=== PATIENT | female | born 1975 | race Caucasian/White ===

== ENCOUNTER → 2017-11-18 09:23 | Outpatient (CLI) | payer OTHER, SELFPAY ==
[2017-11-18 13:26] LABS: T4 Free Direct 1.12 ng/dL (0.76-1.46); Thyroid Stim Hormone (TSH) 1.79 uIU/mL (0.358-3.74)
== END ==
LOC: LAB.FUTURE 05-23 00:29 → BFHLAB 04-18 10:57
PROVIDERS: Family Provider Family Medicine; PCP Family Medicine; Visit Provider Family Medicine
DX: E03.9 Hypothyroidism, unspecified (principal)
CPT/HCPCS: 36415; 84439; 84443

== ENCOUNTER → 2018-01-17 16:00 | Outpatient (CLI) | payer OTHER, SELFPAY ==
[2018-01-17 18:35] LABS: T4 Free Direct 1.24 ng/dL (0.76-1.46); Thyroid Stim Hormone (TSH) 0.33 uIU/mL (0.358-3.74)
== END ==
PROVIDERS: Family Provider Family Medicine; PCP Family Medicine; Visit Provider Family Medicine
DX: E03.9 Hypothyroidism, unspecified (principal)
CPT/HCPCS: 36415; 84439; 84443

== ENCOUNTER → 2018-05-18 14:40 | Outpatient (CLI) | payer OTHER, SELFPAY ==
[2018-05-24 07:10] LABS: HPV Reflexed? NOT INDICATED
== END ==
PROVIDERS: Visit Provider Obstetrics & Gynecology
DX: Z12.4 Encounter for screening for malignant neoplasm of cervix (principal)
CPT/HCPCS: 88175; G0145

== ENCOUNTER → 2018-07-01 08:31 | Outpatient (CLI) | payer OTHER, SELFPAY ==
[2018-07-01 12:32] LABS: Anion Gap 7 (5-15); BUN 15 mg/dL (7-18); BUN/Creat Ratio 16.4 RATIO (10-20); Calcium,Total 9.2 mg/dL (8.5-10.1); Chloride 107 mmol/L (98-107); Creatinine, Serum 0.91 mg/dL (0.55-1.02); EST Glomerular Filtration Rate 71 mL/min (>60); Est Glom Filt Rate - Afr Amer 86 mL/min (>60); Glucose 84 mg/dL (74-106); Potassium 3.8 mmol/L (3.5-5.1); Sodium Level 142 mmol/L (136-145); Thyroid Stim Hormone (TSH) 1.08 uIU/mL (0.358-3.74)
== END ==
PROVIDERS: Family Provider Family Medicine; PCP Family Medicine; Visit Provider Family Medicine
DX: E03.9 Hypothyroidism, unspecified (principal)
CPT/HCPCS: 36415; 80048; 84439; 84443

== ENCOUNTER → 2018-07-01 13:08 | Outpatient (CLI) | payer OTHER, SELFPAY ==
--- NOTE | 2018-07-01 13:11 | BI_ITS ---
MAMMOGRAPHY - BILATERAL SCREENING REASON FOR EXAM: Female, 43 years old. Routine annual screening examination. PERTINENT HISTORY: Non-contributory. Prior right ultrasound guided biopsy. TECHNIQUE: Digital bilateral breast rory (3D mammographic acquisition) in the CC and MLO projections. 2-D mediolateral oblique (MLO) and craniocaudad (CC) views of both breasts were obtained. CAD: Full Field Digital Mammography with Computer Added Detection was performed. COMPARISON: Comparison is made with prior study dated March 17, 2017 and January 20, 2016. FINDINGS: Breast Composition: The breasts are heterogeneously dense, which may obscure small masses. There are no dominant masses or suspicious calcifications. 2 tissue markers are once again seen in the upper outer aspect of the right breast. Stable bilateral benign-appearing axillary lymph nodes. No other significant abnormalities are identified. There has been no significant change since the prior study. BI/SCREENING MAMM (CAD), BILAT IMPRESSION: Stable bilateral screening mammogram. Yearly follow-up mammogram recommended. (A) ASSESSMENT CATEGORY: BIRADS Category 2: Benign. A letter regarding these results will be sent to the patient by the facility within 30 days. Approximately 10% of breast cancers are not detected by mammography. A normal mammogram should not delay biopsy of a clinically suspicious abnormality. [id number] Electronically Signed: Anant Ennis MD at 14:19 EDT Tel [phone], Service support ,
== END ==
PROVIDERS: Family Provider Family Medicine; PCP Family Medicine; Visit Provider Obstetrics & Gynecology
DX: Z12.31 Encounter for screening mammogram for malignant neoplasm of breast (principal)
CPT/HCPCS: 77063; 77067

== ENCOUNTER → 2019-04-18 09:55 | Outpatient (CLI) | payer OTHER, SELFPAY ==
[2019-04-18 09:57] LABS: Mucous, Urine 0 SEEN /hpf (<or=2+); Red Blood Cells-Urine 0 SEEN /hpf (0-5); White Blood Cells 0 SEEN /hpf (0-5)
[2019-04-18 12:08] LABS: Color, Urine Yellow (Yellow); Glucose, Dipstick Normal (Normal); Ketone-Dipstick Negative (Negative); Leukocyte Esterase-Dipstick Negative /ul (Negative); Nitrite-Dipstick Negative (Negative); Occult Blood-Urine Negative /ul (Negative); Protein-Dipstick Negative (Negative); Urine Bilirubin Dipstick Negative (Negative); Urine Clarity Clear (Clear); Urine Urobilinogen Normal (Normal)
[2019-04-18 12:13] LABS: Absolute Lymphocyte Count 1.64 X10^3/ul (0.83-4.51); Absolute Neutrophil Count 3.8 X10^3/uL (2.0-7.7); Basophil# 0.03 X10^3/uL; Basophil% 0.5 % (0-1); Eosinophil# 0.12 X10^3/uL; Eosinophils% 1.9 % (0-5); Hematocrit 40.6 % (37-47); Hemoglobin 13.7 g/dl (12.0-15.0); Lymphocyte # 1.64 X10^3/ul (4.0); Lymphocyte % 26.6 % (19-41); Mean Corp Hgb Conc 33.7 g/gl (32-36); Mean Corpuscular Hgb 31.4 pg (27.0-32.0); Mean Corpuscular Volume 93.1 fL (81-99); Mean Platelet Vol. 10.6 fl (6.2-12.0); Monocyte# 0.56 X10^3/uL; Monocyte% 9.1 % (0-10); Neutrophil # 3.81 X10^3/uL (2.7-7.7); Neutrophil % 61.7 % (47-70); Platelet Count 177 K/mm3 (150-450); RBC Distribution Width SD 43.9 fl (35.1-43.9); Red Blood Count 4.36 M/mm3 (4.2-5.4); White Blood Count 6.2 K/mm3 (4.4-11.0)
[2019-04-18 12:15] LABS: Bacteria RARE /hpf (None Seen); Squamous Epithelial Cells - UA 0-5 SEEN /hpf (5-10)
[2019-04-18 12:19] LABS: POSITIVE COUNT NO; POSITIVE DIFFERENTIAL NO; POSITIVE MORPHOLOGY NO
[2019-04-18 12:32] LABS: ALB/GLOB Ratio 1.3 RATIO (0.9-2.4); AST(SGOT) 30 U/L (15-37); Alanine Aminotransfer ALT/SGPT 37 U/L (13-56); Albumin, Serum 4.1 g/dL (3.2-5.0); Alkaline Phosphatase 96 U/L (45-117); Anion Gap 8 (5-15); BUN 16 mg/dL (7-18); BUN/Creat Ratio 16.5 RATIO (10-20); Calcium,Total 9.4 mg/dL (8.5-10.1); Chloride 103 mmol/L (98-107); Creatinine, Serum 0.97 mg/dL (0.55-1.02); EST Glomerular Filtration Rate 66 mL/min (>60); Est Glom Filt Rate - Afr Amer 80 mL/min (>60); Globulin 3.2 g/dL (2.2-4.2); Glucose 86 mg/dL (74-106); Potassium 3.7 mmol/L (3.5-5.1); Protein, Total 7.3 g/dL (6.4-8.2); Sodium Level 137 mmol/L (136-145); T4 Free Direct 1.01 ng/dL (0.76-1.46); Thyroid Stim Hormone (TSH) 3.19 uIU/mL (0.358-3.74)
[2019-04-18 12:58] LABS: BNP,B-Type NATRIURETIC PEPTIDE 24.4 pg/mL (0-100)
== END ==
PROVIDERS: Family Provider Family Medicine; PCP Family Medicine; Visit Provider Family Medicine
DX: E03.9 Hypothyroidism, unspecified (principal); R60.9 Edema, unspecified; R06.00 Dyspnea, unspecified
CPT/HCPCS: 36415; 80053; 81001; 83880; 84439; 84443; 85025

== ENCOUNTER → 2019-05-23 14:27 | Outpatient (CLI) | payer OTHER, SELFPAY ==
[2019-05-23 17:55] LABS: T4 Free Direct 0.98 ng/dL (0.76-1.46); Thyroid Stim Hormone (TSH) 3.55 uIU/mL (0.358-3.74)
== END ==
LOC: LAB.FUTURE 11-26 00:30 → BFHLAB 04-18 10:56
PROVIDERS: Family Provider Family Medicine; PCP Family Medicine; Visit Provider Family Medicine
DX: E03.9 Hypothyroidism, unspecified (principal)
CPT/HCPCS: 36415; 84439; 84443

== ENCOUNTER → 2019-06-13 15:08 | Outpatient (CLI) | payer OTHER, SELFPAY ==
[2019-06-16 11:59] LABS: HPV APTIMA, High Risk Negative (Negative)
== END ==
PROVIDERS: Visit Provider Obstetrics & Gynecology
DX: Z12.4 Encounter for screening for malignant neoplasm of cervix (principal)
CPT/HCPCS: 87624; 88175; G0145

== ENCOUNTER → 2019-07-03 13:00 | Outpatient (CLI) | payer OTHER, SELFPAY ==
--- NOTE | 2019-07-03 13:02 | BI_ITS ---
MAMMOGRAPHY - BILATERAL SCREENING REASON FOR EXAM: Female, 44 years old. Routine annual screening examination. PERTINENT HISTORY: Non-contributory. TECHNIQUE: Digital bilateral breast brady (3D mammographic acquisition) in the CC and MLO projections. 2-D mediolateral oblique (MLO) and craniocaudad (CC) views of both breasts were obtained. CAD: Full Field Digital Mammography with Computer Added Detection was performed. COMPARISON: Comparison is made with prior examination dated July 01, 2018 and March 17, 2017. FINDINGS: Breast Composition: The breasts are heterogeneously dense, which may obscure small masses. There are no dominant masses or suspicious calcifications. Stable benign-appearing bilateral axillary lymph nodes. Once again, 2 tissue markers are seen in the upper outer aspect of the right breast from prior biopsies. Stable appearance of defect containing bilateral axillary lymph nodes. No other significant abnormalities are identified. There has been no significant change since the prior study. BI/SCREEN MAMM (CAD) W/BRADY BILAT IMPRESSION: Stable bilateral screening mammogram. Yearly follow-up mammogram recommended. (A) ASSESSMENT CATEGORY: BIRADS Category 2: Benign. A letter regarding these results will be sent to the patient by the facility within 30 days. Approximately 10% of breast cancers are not detected by mammography. A normal mammogram should not delay biopsy of a clinically suspicious abnormality. [id number] Electronically Signed: Anant Ennis, at 15:18 EDT , Service support ,
== END ==
PROVIDERS: Family Provider Family Medicine; PCP Family Medicine; Referring Provider Obstetrics & Gynecology; Visit Provider Obstetrics & Gynecology
DX: Z12.31 Encounter for screening mammogram for malignant neoplasm of breast (principal)
CPT/HCPCS: 77063; 77067

== ENCOUNTER → 2019-07-03 15:06 | Outpatient (CLI) | payer OTHER, SELFPAY ==
[2019-07-03 18:08] LABS: T4 Free Direct 1.41 ng/dL (0.76-1.46); Thyroid Stim Hormone (TSH) 0.16 uIU/mL (0.358-3.74)
== END ==
LOC: LAB.FUTURE 01-03 00:31 → BFHLAB 04-18 10:55
PROVIDERS: Family Provider Family Medicine; PCP Family Medicine; Visit Provider Family Medicine
DX: E03.9 Hypothyroidism, unspecified (principal)
CPT/HCPCS: 36415; 84439; 84443

== ENCOUNTER → 2020-01-31 11:56 | Outpatient (CLI) | payer OTHER, SELFPAY ==
[2020-01-31 16:04] LABS: T4 Free Direct 1.12 ng/dL (0.76-1.46); Thyroid Stim Hormone (TSH) 0.45 uIU/mL (0.358-3.74)
== END ==
PROVIDERS: PCP Family Medicine; Referring Provider Family Medicine; Visit Provider Family Medicine
DX: E03.9 Hypothyroidism, unspecified (principal)
CPT/HCPCS: 36415; 84439; 84443

== ENCOUNTER → 2020-04-17 10:10 | Outpatient (CLI) | payer OTHER, SELFPAY ==
[2020-04-17 10:00] VITALS: BMI 34.8
--- NOTE | 2020-04-17 10:11 | RAD_ITS ---
STUDY: X-RAY - LEFT ELBOW REASON FOR EXAM: Female, 45 years old. PAIN X 2 MONTHS. NO INJURY TECHNIQUE: 3 view(s) of the elbow. COMPARISON: None. FINDINGS: Normal visualized humerus, radius and ulna. Normal radiocapitellar and ulnotrochlear articulations. The soft tissue structures are unremarkable. RAD/Elbow min 3 Views IMPRESSION: Normal x-ray examination of the elbow. Electronically Signed: Anant Ennis, at 10:44 EDT , Service support ,
== END ==
PROVIDERS: PCP Family Medicine; Referring Provider Physician Assistant; Visit Provider Physician Assistant
DX: M25.522 Pain in left elbow (principal)
CPT/HCPCS: 73080

== ENCOUNTER → 2020-05-01 14:31 | Outpatient (CLI) | payer OTHER, SELFPAY ==
[2020-04-17 10:00] VITALS: BMI 34.8
[2020-05-01 17:21] LABS: ALB/GLOB Ratio 1.3 RATIO (0.9-2.4); AST(SGOT) 27 U/L (15-37); Alanine Aminotransfer ALT/SGPT 53 U/L (13-56); Albumin, Serum 3.9 g/dL (3.2-5.0); Alkaline Phosphatase 80 U/L (45-117); Anion Gap 4 (5-15); BUN 14 mg/dL (7-18); BUN/Creat Ratio 13.9 RATIO (10-20); Calcium,Total 8.8 mg/dL (8.5-10.1); Chloride 106 mmol/L (98-107); Creatinine, Serum 1.01 mg/dL (0.55-1.02); EST Glomerular Filtration Rate 62 mL/min (>60); Est Glom Filt Rate - Afr Amer 76 mL/min (>60); Glucose 93 mg/dL (74-106); Potassium 3.5 mmol/L (3.5-5.1); Protein, Total 6.9 g/dL (6.4-8.2); Sodium Level 139 mmol/L (136-145); T4 Free Direct 1.24 ng/dL (0.76-1.46); Thyroid Stim Hormone (TSH) 2.16 uIU/mL (0.358-3.74)
== END ==
PROVIDERS: PCP Family Medicine; Visit Provider Family Medicine
DX: E03.9 Hypothyroidism, unspecified (principal); E78.5 Hyperlipidemia, unspecified
CPT/HCPCS: 36415; 80053; 84439; 84443

== ENCOUNTER → 2020-07-09 12:48 | Outpatient (CLI) | payer OTHER, SELFPAY ==
[2020-04-17 10:00] VITALS: BMI 34.8
--- NOTE | 2020-07-09 12:50 | BI_ITS ---
MAMMOGRAPHY - BILATERAL SCREENING REASON FOR EXAM: Female, 45 years old. Routine annual screening examination. PERTINENT HISTORY: Non-contributory. History of prior ultrasound-guided right breast biopsy. TECHNIQUE: Digital bilateral breast brady (3D mammographic acquisition) in the CC and MLO projections. 2-D mediolateral oblique (MLO) and craniocaudad (CC) views of both breasts were obtained. CAD: Full Field Digital Mammography with Computer Added Detection was performed. COMPARISON: Comparison is made with prior study dated 07/03/2019 and 07/01/2018. FINDINGS: Breast Composition: The breasts are heterogeneously dense, which may obscure small masses. There are no dominant masses or suspicious calcifications. Once again, 2 tissue markers are seen in the upper outer aspect of the right breast. Stable appearance of the small benign-appearing bilateral axillary lymph nodes. No other significant abnormalities are identified. There has been no significant change since the prior study. BI/SCREEN MAMM (CAD) W/BRADY BILAT IMPRESSION: Stable bilateral screening mammogram. Yearly follow-up mammogram recommended. (A) ASSESSMENT CATEGORY: BIRADS Category 2: Benign. A letter regarding these results will be sent to the patient by the facility within 30 days. Approximately 10% of breast cancers are not detected by mammography. A normal mammogram should not delay biopsy of a clinically suspicious abnormality. [id number] Electronically Signed: Anant Ennis, at 14:27 EDT , Service support ,
== END ==
PROVIDERS: PCP Family Medicine; Referring Provider Obstetrics & Gynecology; Visit Provider Obstetrics & Gynecology
DX: Z12.31 Encounter for screening mammogram for malignant neoplasm of breast (principal)
CPT/HCPCS: 77063; 77067

== ENCOUNTER → 2021-08-19 14:20 | Outpatient (CLI) | payer OTHER, SELFPAY ==
[2021-08-19 15:15] LABS: Follicle Stimulating Hormone 97.8 mIU/mL
== END ==
PROVIDERS: PCP Family Medicine; Visit Provider Obstetrics & Gynecology
DX: N91.2 Amenorrhea, unspecified (principal)
CPT/HCPCS: 36415; 83001

== ENCOUNTER → 2021-08-20 | Outpatient (CLI) | payer OTHER, SELFPAY | END | disposition home or self-care (01) | PROVIDERS: PCP Family Medicine; Visit Provider Family Medicine | DX: Z20.828 Contact with and (suspected) exposure to other viral communicable diseases (principal) | CPT/HCPCS: 87635; U0005; U0003 ==

== ENCOUNTER → 2021-09-08 | Outpatient (CLI) | payer OTHER, SELFPAY | END | disposition home or self-care (01) | LOC: LABSPEC 16:36 | PROVIDERS: PCP Family Medicine; Referring Provider Family Medicine; Visit Provider Family Medicine | DX: U07.1 COVID-19 (principal) | CPT/HCPCS: 87635; U0005; U0003 ==

== ENCOUNTER → 2021-09-23 15:48 | Outpatient (CLI) | payer OTHER, SELFPAY ==
--- NOTE | 2021-09-23 15:50 | BI_ITS ---
MAMMOGRAPHY - BILATERAL SCREENING REASON FOR EXAM: Female, 46 years old. Routine annual screening examination. PERTINENT HISTORY: Non-contributory. TECHNIQUE: Digital bilateral breast brady (3D mammographic acquisition) in the CC and MLO projections. 2-D mediolateral oblique (MLO) and craniocaudad (CC) views of both breasts were obtained. CAD: Full Field Digital Mammography with Computer Added Detection was performed. COMPARISON: Comparison is made with prior study 07/09/2020 07/03/2000 FINDINGS: Breast Composition: The breasts are heterogeneously dense, which may obscure small masses. There are no dominant masses or suspicious calcifications. 2 tissue markers are once again seen in the upper outer aspect of the right breast. No other significant abnormalities are identified. There has been no significant change since the prior study. BI/SCRN MAMM (CAD)W/BRADY BILAT IMPRESSION: Stable bilateral screening mammogram. Yearly follow-up mammogram recommended. (A) ASSESSMENT CATEGORY: BIRADS Category 2: Benign. A letter regarding these results will be sent to the patient by the facility within 30 days. Approximately 10% of breast cancers are not detected by mammography. A normal mammogram should not delay biopsy of a clinically suspicious abnormality. [id number] Electronically Signed: Anant Ennis MD at 8:23 EST , Service support ,
== END ==
PROVIDERS: PCP Family Medicine; Referring Provider Obstetrics & Gynecology; Visit Provider Obstetrics & Gynecology
DX: Z12.31 Encounter for screening mammogram for malignant neoplasm of breast (principal)
CPT/HCPCS: 77063; 77067

== ENCOUNTER → 2022-06-23 | Outpatient (CLI) | payer OTHER, SELFPAY | END | disposition home or self-care (01) | PROVIDERS: PCP Family Medicine; Visit Provider Family Medicine | DX: R30.0 Dysuria (principal) | CPT/HCPCS: 87077; 87086; 87088; 87186 ==

== ENCOUNTER → 2022-06-29 | Outpatient (CLI) | payer OTHER, SELFPAY ==
[2022-06-29 17:57] LABS: T4 Free Direct 1.13 ng/dL (0.76-1.46); Thyroid Stim Hormone (TSH) 0.66 uIU/mL (0.358-3.74)
== END | disposition home or self-care (01) ==
PROVIDERS: PCP Family Medicine; Visit Provider Family Medicine
DX: E03.9 Hypothyroidism, unspecified (principal)
CPT/HCPCS: 36415; 84439; 84443

== ENCOUNTER → 2022-08-25 | Outpatient (CLI) | payer OTHER, SELFPAY ==
[2022-09-02 14:54] LABS: HPV APTIMA, High Risk Negative (Negative)
== END | disposition home or self-care (01) ==
LOC: LABSPEC 13:46
PROVIDERS: PCP Family Medicine; Visit Provider Student in an Organized Health Care Education/Training Program
DX: Z12.4 Encounter for screening for malignant neoplasm of cervix (principal)
CPT/HCPCS: 87624; 88175; G0145

== ENCOUNTER → 2022-09-24 | Outpatient (CLI) | payer OTHER, SELFPAY ==
--- NOTE | 2022-09-24 13:15 | BI_ITS ---
MAMMOGRAPHY - BILATERAL SCREENING REASON FOR EXAM: Female, 47 years old. Routine annual screening examination. PERTINENT HISTORY: Non-contributory. History of prior right ultrasound-guided breast biopsy. TECHNIQUE: Digital bilateral breast brady (3D mammographic acquisition) in the CC and MLO projections. 2-D mediolateral oblique (MLO) and craniocaudad (CC) views of both breasts were obtained. CAD: Full Field Digital Mammography with Computer Added Detection was performed. COMPARISON: Comparison is made with prior study 09/23/2021 and 07/09/2022. FINDINGS: Breast Composition: The breasts are heterogeneously dense, which may obscure small masses. There are no dominant masses or suspicious calcifications. Again, 2 tissue markers are seen in the upper outer aspect of the right breast. No other significant abnormalities are identified. There has been no significant change since the prior study. BI/SCRN MAMM (CAD)W/BRADY BILAT IMPRESSION: Stable bilateral screening mammogram. Yearly follow-up mammogram recommended. (A) ASSESSMENT CATEGORY: BIRADS Category 2: Benign. A letter regarding these results will be sent to the patient by the facility within 30 days. Approximately 10% of breast cancers are not detected by mammography. A normal mammogram should not delay biopsy of a clinically suspicious abnormality. [id number] Electronically Signed: Anant Ennis MD at 9:48 EST ,
== END | disposition home or self-care (01) ==
LOC: OPBI 13:12
PROVIDERS: PCP Family Medicine; Visit Provider Student in an Organized Health Care Education/Training Program
DX: Z12.31 Encounter for screening mammogram for malignant neoplasm of breast (principal)
CPT/HCPCS: 77063; 77067

== ENCOUNTER 2024-10-06 05:50 | Day surgery (SDC) | payer OTHER, SELFPAY ==
[2024-10-06] VITALS (10 sets, daily range): BP systolic 110–121; BP diastolic 66–80; PULSE 63–78; RESP 16; TEMP 36.3–36.8; O2SAT 96–98; BMI 28.5
[2024-10-06] MEDS: 0.9% Normal Saline (1000mL) 1,000 ML 15 ML IV (06:39)
--- NOTE | 2024-10-06 06:57 | PRE.ANES_ITS ---
ASA Classification* ASA Classification ASA Classification: 2 Assessment & Plan Anesthesia* Anesthesia Assessment Anesthesia Assessment: Discussed sedation and/or anesthesia options, risks, benefits, and alternatives with patient/parents/legal guardian/POA. Questions invited. The patient/parents/legal guardian/POA seems to understand and agrees to proceed with anesthesia plan. Reviewed the physical assessment, medical history, allergy history and patient home medications list prior to surgery/procedure/anesthetic and documented any changes. Performed airway and anesthesia risk assessments. Anesthesia Type Anesthesia Type: General Anesthesia Focused Assessment* Temperature: 98.2 F Pulse Rate: 63 Blood Pressure: 113/73 Respiratory Rate: 16 Pulse Ox: 97 Airway Assessment Mouth opens: >3 cm Mallampati Score: II Focused Labs Anesthesia Preop lab: CBC WBC 6.2 K/mm3 (4.4-11.0) 04/18/19 09:56 RBC 4.36 M/mm3 (4.2-5.4) 04/18/19 09:56 Hgb 13.7 g/dl (12.0-15.0) 04/18/19 09:56 Hct 40.6 % (37-47) 04/18/19 09:56 Plt Count 177 K/mm3 (150-450) 04/18/19 09:56 CHEMISTRY Potassium 3.5 mmol/L (3.5-5.1) 05/01/20 14:31 Sodium 139 mmol/L (136-145) 05/01/20 14:31 BUN 14 mg/dL (7-18) 05/01/20 14:31 Creatinine 1.01 mg/dL (0.55-1.02) 05/01/20 14:31 Glucose 93 mg/dL (74-106) 05/01/20 14:31 TSH 0.66 uIU/mL (0.358-3.74) 06/29/22 16:27 COAG Pre-Assessment Diagnosis/Proposed Procedure Planned Operative Procedure(s): (L) Endoscopic Plantar Fasciotomy of the left foot. Anesthesia History Anesthesia History - sustainable design consultant: Anesthesia History - sustainable design consultant Hx Hospitalization No 10/02/24 09:04 Any Problems With Anesthesia No 10/02/24 09:04 Cholinesterase deficiency No 10/02/24 09:04 You/Your Family Experience No 10/02/24 09:04 fever (hyperthermia) with Relationship Recent Exposure to Contagious No 10/06/24 06:30 Disease Does patient have nerve No 10/02/24 09:04 stimulator Patient instructed to have device shut off --Does patient have Pacemaker No 10/06/24 06:30 or ICD? When Was Last Pacemaker Check QUESTION #4 FULL TEXT: You/Your Family Experience fever (hyperthermia) with Anesthesia Last Oral Intake Last Oral intake: Last Oral Intake NPO since 22:00 10/06/24 06:30 Meds taken in AM with sips of water? Meds patient instructed to take am of surgery PONV PONV - sustainable design consultant: PONV - sustainable design consultant Female Yes 10/02/24 09:04 HX of Motion Sickness No 10/02/24 09:04 HX of N/V After Surgery Yes 10/02/24 09:04 Non-Smoker Yes 10/02/24 09:04 Duration of Surgery greater No 10/02/24 09:04 than 60 minutes Number of Risk Factors 3 10/02/24 09:04 PONV Score Moderate Risk 10/02/24 09:04 Height & Weight Height & Weight: Anesthesia: Height & Weight Height 5 ft 5.5 in 10/06/24 06:30 Weight: 79 kg 10/06/24 06:30 Body Mass Index (BMI) 28.5 10/06/24 06:30 Respiratory Assessment Respiratory Assessment - sustainable design consultant: Respiratory Tract Infection Hx - sustainable design consultant Hx Respiratory Tract Infection Yes: LARYNGITIS - WILL 10/02/24 09:[address] LAMBERT STOP Sleep Apnea STOP Sleep Apnea - sustainable design consultant: STOP Sleep Apnea - sustainable design consultant Hx Hypertension No 10/02/24 09:04 Hx Sleep Apnea No 10/02/24 09:04 CPAP BIPAP Do you snore loudly (louder Yes 10/02/24 09:04 than talking or can be heard Do you often feel tired/ No 10/02/24 09:04 fatigued/ sleepy during daytime? Has anyone observed you stop No 10/02/24 09:04 breathing during sleep? STOP Results Negative 10/02/24 09:04 QUESTION #5 FULL TEXT : Do you snore loudly (louder than talking or can be heard through closed doors)? Tobacco Use History Tobacco Use History - sustainable design consultant: Tobacco Use History - sustainable design consultant Tobacco Use Smoking Status Never smoker 10/02/24 09:04 Hx Tobacco Use No 10/02/24 09:04 Years Smoking Packs Smoked per Day Smoking Cessation Date was within the last 15 years Hx Smoking Cessation Date Hx Smoking Cessation Counseling Hematologic Medial History Hematologic Hx - sustainable design consultant: Hematologic Medical Hx - senior reservoir engineer Hx of Blood Transfusion No 10/02/24 09:04 Hx of Transfusion in last 3 No 10/02/24 09:04 Months Date of Last Transfusion (if within last 3 months) Ever experience any problems No 10/02/24 09:04 with transfusion(s)? Specify any problems Hx of Preganancy in last 3 No 10/02/24 09:04 Months Nurse Filling Out Transfusion MGRIFFITH 10/02/24 09:04 & Questions: Date: 10/02/24 10/02/24 09:04 Time: 09:06 10/02/24 09:04 Patient unable to answer at this time (ie. confused, unrespo /Reproduction History /Reproductive History - sustainable design consultant: /Reproductive Hx- sustainable design consultant Hx Now No 10/02/24 09:04 Gestational Age (in weeks): EDC: Hx Hx Para Hx Section SAB No 10/02/24 09:04 Active Medications Active Medications: Current Medications Generic Name Dose Route Start Last Admin Trade Name Freq PRN Reason Stop Dose Admin Clindamycin Phosphate 900 mg in 50 mls @ 75 mls/hr 10/06/24 07:30 Cleocin IV 10/06/24 08:09 PREOP ONE Sodium Chloride 1,000 mls @ 15 mls/hr 10/06/24 06:40 10/06/24 06:39 IV 10/11/24 19:59 15 mls/hr .Q48H ANTOLIN Administration Protocol PFSH Medical History PONV (postoperative nausea and vomiting) Post-menopausal Alcohol use Bladder disease Easy bruising High cholesterol Hoarseness Non-smoker Chronic cough History of vaginal delivery History of live Thyroid disease Asthma Hay fever Fatigue Home Medications ?Medication ?Instructions ?Recorded ?Last Taken ?Type ibuprofen 200 mg tablet 200 mg PO Q6H PRN PRN Pain 09/30/13 09/30/13 22:00 History atorvastatin 10 mg tablet 10 mg PO DAILY 04/17/20 Unknown History melatonin 3 mg capsule 3 mg PO HS PRN sleep 04/17/20 Unknown History mirabegron 50 mg tablet,extended 50 tab PO DAILY 04/17/20 Unknown History release 24 hr montelukast 10 mg tablet 10 mg PO DAILY 04/17/20 Unknown History trazodone 50 mg tablet 50 mg PO DAILY 04/17/20 Unknown History albuterol sulfate 90 mcg/actuation 2 inh inhalation Q8H PRN 10/02/24 10/06/24 04:20 History aerosol inhaler (Ventolin HFA) bronchospasm bupropion HCl 300 mg 24 hr tablet, 300 mg PO DAILY 10/02/24 Unknown History extended release fluticasone 500 mcg-salmeterol 50 1 inh inhalation BID 10/02/24 Unknown History mcg/dose blistr powdr for inhalation (Advair Diskus) levothyroxine 125 mcg tablet 125 mcg PO DAILY 10/02/24 10/06/24 History (Euthyrox) tirzepatide (weight loss) 5 mg/0.5 5 mg subcut .WK 10/02/24 09/22/24 History mL subcutaneous pen injector (Zepbound) Allergy/AdvReac Type Severity Reaction Status Date / Time amoxicillin Allergy Unknown Verified 10/06/24 06:26 ampicillin Allergy Unknown Verified 10/06/24 06:26 cefaclor (From Ceclor) Allergy Unknown Verified 10/06/24 06:26 cephalexin (From Keflex) Allergy Unknown Verified 10/06/24 06:26 erythromycin base Allergy Hives Verified 10/06/24 06:26 (Erythromycin Base) Penicillins Allergy Hives Verified 10/06/24 06:26 sulfamethoxazole (From Allergy Hives Verified 10/06/24 06:26 Bactrim) tetracycline (Tetracycline) Allergy Hives Verified 10/06/24 06:26 trimethoprim (From Bactrim) Allergy Hives Verified 10/06/24 06:26 Surgical History History of foot surgery History of partial thyroidectomy Social History Smoking Status: Never smoker alcohol intake: current Review of Systems (Anesthesia) ROS Narrative System reviewed and no additional complaints, except as documented.
[2024-10-06] MEDS: Clindamycin 900 MG/50 ML BAG 75 MG IV (07:30)
[2024-10-06] MEDS: Bupivacaine Mpf 0.5% 30 ML VIAL (08:06)
--- NOTE | 2024-10-06 08:15 | OP.PCM_ITS ---
Problems Associated Problem List Diagnoses (1) Plantar fascial fibromatosis: Operative Report (Standard) Operative Information Date of Procedure: 10/06/24 Pre-Operative Diagnosis: 1) Left Foot Plantar Fasciitis Post-Operative Diagnosis: Same Surgery/Procedure Performed: Endoscopic Plantar fasciotomy, left foot chairman & chief executive officer: Yes Collect On Delivery Clerk: adan [email or web address] Tasks completed by accounting manager assistant controller: Opening, Closing and Retracting Type of Anesthesia: General RN Documented Start/Stop Times: Operation Date: 10/06/24 07:30 Case Time Into Pre-Op 10/06/24 05:59 Anesthesia Start 10/06/24 07:30 Into Room 10/06/24 07:30 Out of Pre-Op 10/06/24 07:30 Procedure Start 10/06/24 07:47 Into Recovery 10/06/24 08:04 Procedure End 10/06/24 08:06 Anesthesia End 10/06/24 08:08 Out of Room 10/06/24 08:08 Procedure Start Time: 07:33 Procedure Stop Time: 08:00 Select all DRAINS/GRAFTS/IMPLANTS that apply: None Estimated Blood Loss: minimal Specimen collected: No Description of surgery: Patient failed conservative treatment MRI confirmed plantar fasciitis left foot. Patient opted for elective plantar fasciotomy with endoscopic approach. Patient was brought back the operating placed comfortably in supine position on the operating room table. Patient induced under general anesthesia. Well- padded ankle tourniquet applied to left lower extremity. Left lower extremity scrubbed prepped draped using typical aseptic fashion. Once cleared by anesthesia left lower extremity was elevated exsanguinated tourniquet was inflated 250 mmHg. A 30 cc block was performed to the ankle including the tibial nerve local infiltration and the sural nerve laterally. A small stab incision was made 1 cm district distal to the medial calcaneal tubercle at the level of the conjoining area of the plantar and medial skin. This incision was deepened with a hemostat at which time the plantar fascia could be surround a elevator was taken from medial to lateral and then the trocar and cannula inserted from medial to lateral and a lateral stab incision was made to allow for complete traversing of the plantar fascial site. A scope was inserted from lateral to medial and the plantar fascia was visualized and noted to to be thickened. A triangle blade was then inserted and the plantar fascia was released from lateral to medial central band including the medial two thirds of that central band underlying intrinsic muscle belly was examined and evaluated upon release of the plantar fasciotomy suggestive of good adequate release. Pictures were taken at this time. Site was flushed with copious muscle normal sterile saline awls all hardware was removed from the site site was flushed again with normal sterile saline. Tourniquet was let down. Incisional closure performed with 3-0 nylon using over and over stitch. Dressed with Betadine Adaptic 4 x 4's Kerlix and a well-padded AO splint with the foot and ankle held in a rectus position. Patient tolerated procedure well. Patient transported to PACU vital signs stable vascular status intact all dated for further monitoring prior to discharge. Patient tolerated procedure and anesthesia well in apparent satisfactory condition. Adequate resection of plantar fascia noted No complications Surgical Findings: As dictated above Complications Complications: No
--- NOTE | 2024-10-06 09:39 | PCM.POST.ANE ---
Anesthesia: Postop Eval I Current Vital Signs Temperature: 97.4 F Pulse Rate: 71 Blood Pressure: 121/80 Respiratory Rate: 16 Pulse Ox: 98 Oxygen Delivery Method: Room Air Assessment Airway patent: Yes Spontaneous unlabored respirations: Yes Mental status: Awake and Calm nausea: No Vomiting: No Anesthesia Complication: No Fluid Hydration Crystalloid volume administer (ml): 800 Total IV fluid infused: 800 Progress Note Anesthesia document: Postop Eval 1 completed: Yes
--- NOTE | 2024-10-06 10:33 | POSTOPAN2_ITS ---
Anesthesia Postop Eval I Sum Postop Eval Completion status Anesthesia document: Postop Eval 1 completed: Yes Anesthesia Postop Eval I Summary Anesthesia Postop Eval I Summary: Anesthesia Postop Eval I: Assessment Summary Airway patent Yes 10/06/24 09:41 CAPTAIN [email or web address] Spontaneous unlabored Yes 10/06/24 09:41 CAPTAIN [email or web address] respirations Mental status Awake,Calm 10/06/24 09:41 CAPTAIN [email or web address] nausea No 10/06/24 09:41 CAPTAIN WAITER/[email or web address] Vomiting No 10/06/24 09:41 CAPTAIN WAITER/[email or web address] Anesthesia Postop Eval I: Fluid Summary Crystalloid volume administer 800 10/06/24 09:41 CAPTAIN [email or web address] (ml) Colloids volume administered ( ml) Blood Product volume administered (ml) Total IV fluid infused 800 10/06/24 09:41 CAPTAIN [email or web address] Anesthesia Postop Eval I: Summary Notes Anesthesia Complication No 10/06/24 09:41 CAPTAIN [email or web address] Anesthesia Complication Comment: Post-operative progress note Anesthesia: Postop Eval II Evaluation Mental status: Awake Pain Level: 1 nausea: No Vomiting: No
--- NOTE | 2024-10-06 10:33 | PCM.POSTANE2 ---
Anesthesia Postop Eval I Sum Postop Eval Completion status Anesthesia document: Postop Eval 1 completed: Yes Anesthesia Postop Eval I Summary Anesthesia Postop Eval I Summary: Anesthesia Postop Eval I: Assessment Summary Airway patent Yes 10/06/24 09:41 EMAIL MARKETING SPECIALIST.[email or web address] Spontaneous unlabored Yes 10/06/24 09:41 EMAIL MARKETING SPECIALIST.[place] respirations Mental status Awake,Calm 10/06/24 09:41 EMAIL MARKETING SPECIALIST.[email or web address] nausea No 10/06/24 09:41 EMAIL MARKETING SPECIALIST.[email or web address] Vomiting No 10/06/24 09:41 EMAIL MARKETING SPECIALIST.STANISLAVLOCleve Anesthesia Postop Eval I: Fluid Summary Crystalloid volume administer 800 10/06/24 09:41 EMAIL MARKETING SPECIALIST.[place] (ml) Colloids volume administered ( ml) Blood Product volume administered (ml) Total IV fluid infused 800 10/06/24 09:41 EMAIL MARKETING SPECIALIST.DAYTON Anesthesia Postop Eval I: Summary Notes Anesthesia Complication No 10/06/24 09:41 EMAIL MARKETING SPECIALIST.DAYTON Anesthesia Complication Comment: Post-operative progress note Anesthesia: Postop Eval II Evaluation Mental status: Awake Pain Level: 1 nausea: No Vomiting: No
== END 2024-10-06 10:06 | disposition home or self-care (01) ==
LOC: SDC 05:52 → AC 05:54
PROVIDERS: PCP Internal Medicine; Referring Provider Podiatrist; Visit Provider Podiatrist
PROC: (CPT 29893; principal; 2024-10-06 07:15)
DX: M72.2 Plantar fascial fibromatosis (principal); E07.9 Disorder of thyroid, unspecified; E78.00 Pure hypercholesterolemia, unspecified; N32.9 Bladder disorder, unspecified; J45.909 Unspecified asthma, uncomplicated; Z88.0 Allergy status to penicillin; Z88.1 Allergy status to other antibiotic agents; Z88.2 Allergy status to sulfonamides; Z79.890 Hormone replacement therapy; Z79.899 Other long term (current) drug therapy
CPT/HCPCS: 29893; 01464; J2405